=== PATIENT | male | born 1965 | race Caucasian/White ===

== ENCOUNTER 2022-10-13 14:55 | Emergency (ER) | payer MEDICARE, OTHER, SELFPAY ==
[2022-10-13 14:56] VITALS: BP 134/79; PULSE 66; RESP 18; TEMP 36.8; O2SAT 99; BMI 30.9
--- NOTE | 2022-10-13 15:02 | XR_ITS ---
FINAL REPORT CLINICAL HISTORY: Right shoulder pain, pt fell at daycare COMPARISON: None FINDINGS: RIGHT SHOULDER Two views demonstrate no acute fracture or dislocation. Mild AC joint degenerative change. The visualized bony structures are well aligned. No soft tissue abnormality is seen. IMPRESSION: No acute process. Reviewed, Interpreted and Dictated by Bala Xie III, MD Transcribed by Laurie Aguilar Authenticated and [facility]
--- NOTE | 2022-10-13 15:18 | PC.NURSE ---
XRAY AT [facility]
[2022-10-13 15:30] VITALS: BP 122/73; PULSE 68; O2SAT 99
--- NOTE | 2022-10-13 15:33 | ED_ITS ---
Discharge Plan Disposition Patient Disposition: Home, Self-Care Referrals Follow up/Referrals: Andrei Hicks [Primary Care Provider] - See instructions Activity Restrictions/Add. Instructions Additional Instructions/Restrictions: No evidence of fracture or dislocation you may take Tylenol or ibuprofen as needed for pain. Follow-up with orthopedic surgery in a few weeks if you are not showing signs of improvement to get an MRI to evaluate for possible rotator cuff injury. Clinical Impressions Clinical Impression: Sprain of right shoulder Discharge ED Provider: Nish Donnelly General Adult HPI General Chief complaint: Fall Stated complaint: AO fall 10/13, right shoulder pain Time Seen by Provider: 10/13/22 15:01 Mode of Arrival: Wheelchair Source of Information: Patient Limitations: No Limitations Description of Symptoms (Recalled from ER Triage Doc. by RN): Patient states he fell at daycare injuring his right shoulder. History of Present Illness HPI narrative: 56-year-old male from adult daycare presents with right shoulder injury after falling directly onto it. States that he has been able to move it since that time. Denies injuries elsewhere. No loss of movement or sensation in his hand or anywhere distal to the injury. Related Data Allergies Allergy/AdvReac Type Severity Reaction Status Date / Time No Known Allergies Allergy Verified 10/13/22 15:05 [facility] Disclaimer: The information contained in this section may have been updated after the patient was seen, as this information can be updated by other users. Social History (Updated 10/13/22 @ 16:32 by Fredrick Iraheta MD) Smoking Status: Never smoker alcohol intake: never current occupational status: other Travel in the last 8 weeks: None ROS Obtained: Yes All systems reviewed & no additional complaints except as documented Physical Exam General General appearance: alert Respiratory Respiratory exam: Present normal lung sounds bilaterally Cardiovascular Cardiovascular exam: Present regular rate; Absent tachycardia Extremities Exam Extremities exam: Present other (Right shoulder exam grossly normal to external appearance no soft tissue abnormalities ecchymosis there is no sulcus he does have tenderness he is holding his arm in a flexed and abducted position neurovascular intact) Neurological Exam Neurological exam: Present alert and oriented X3 Medical Decision Making Nate Inquiry Pt receiving controlled substance: No Vital Signs: 10/13/22 14:56 10/13/22 15:30 10/13/22 15:41 Temperature 98.2 F Temperature Source Oral Pulse Rate 68 74 Pulse Rate [Radial] 66 Respiratory Rate 18 Blood Pressure 122/73 142/88 H Blood Pressure [Right Arm] 134/79 Blood Pressure Mean 94 103 Blood Pressure Mean [Right Arm] 97 Blood Pressure Source Blood Pressure Source [Right Arm] Automatic Cuff Blood Pressure Position Blood Pressure Position [Right Arm] Sitting 02 Sat by Pulse Oximetry 99 99 97 Oxygen Delivery Method Room Air Room Air Room Air 10/13/22 16:43 Temperature 98.1 F Temperature Source Oral Pulse Rate 84 Pulse Rate [Radial] Respiratory Rate 18 Blood Pressure 142/78 H Blood Pressure [Right Arm] Blood Pressure Mean Blood Pressure Mean [Right Arm] Blood Pressure Source Automatic Cuff Blood Pressure Source [Right Arm] Blood Pressure Position Sitting Blood Pressure Position [Right Arm] 02 Sat by Pulse Oximetry Oxygen Delivery Method Room Air Orders (Tests/Meds): ED MEDICATIONS Discontinued Medications Generic Name Dose Route Start Last Admin Trade Name Freq PRN Reason Stop Dose Admin Morphine Sulfate 4 mg 10/13/22 15:28 10/13/22 15:41 Morphine 4mg/Ml Syringe IV 10/13/22 15:29 4 mg ONCE ONE Administration Ondansetron HCl 4 mg 10/13/22 15:35 10/13/22 15:41 Ondansetron 4mg/2ml Vial IV 10/13/22 15:36 4 mg ONCE ONE Administration ORDERS Category Date Time Status XR shoulder RT min 2V Stat Exams 10/13/22 15:02 Completed Medical Decision Narrative: 56-year-old male holding his arm in a flexed adducted position with shoulder pain. Grossly appears normal externally. AP view of the x-rays that were obtained I personally interpreted and feels normal. However on the Y view humeral head appears a little bit anteriorly displaced. May be positional given the patient would not cooperate fully with exams. We will give him some morphine and reassess. Trying to externally rotate and fully range his shoulder. Will await radiology read as well. May need to get a CT scan depending on the read. Update 3:59 PM patient fully ranging his arm while they were placing an IV. Awaiting radiology read still. I reassessed the patient physically and he now has full range of motion with internal and external rotation and abduction of his arm. Still no sulcus this is not clinically dislocated. He is much improved after some pain medicine. This is consistent with a musculoskeletal strain. X-rays read by radiology as normal. Discussed this with POGini and [id number] may get an outpatient MRI if he is not improving patient was discharged with supportive care. Critical Care Time Critical Care Time Critical Care Time: No Attestation: On 10/13/22, the high probability of a clinically significant, sudden or life threatening deterioration of the following system(s) required my full and direct attention, intervention and personal management. The time I documented below is in addition to time spent performing reported procedures but includes the following listed in this critical care notation.
[2022-10-13 15:41] VITALS: BP 142/88; PULSE 74; O2SAT 97
[2022-10-13] MEDS: MORPHINE 4MG/ML SYRINGE 4 MG IV (15:41)
[2022-10-13] MEDS: ONDANSETRON 4MG/2ML VIAL 4 MG IV (15:41)
[2022-10-13 16:43] VITALS: BP 142/78; PULSE 84; RESP 18; TEMP 36.7; O2SAT 97
== END 2022-10-13 16:44 | disposition home or self-care (01) ==
PROVIDERS: Emergency Provider Emergency Medicine; PCP Family Medicine
DX: S43.401A Unspecified sprain of right shoulder joint, initial encounter (principal); W19.XXXA Unspecified fall, initial encounter
CPT/HCPCS: 73030; 96374; 96375; 99284; J2405

== ENCOUNTER 2023-10-08 13:33 | Emergency (ER) | payer MEDICARE, OTHER, SELFPAY ==
[2023-10-08 13:35] VITALS: BP 142/86; PULSE 79; RESP 18; TEMP 36.7; O2SAT 98; BMI 33.8
--- NOTE | 2023-10-08 13:58 | PC.NURSE ---
pt ambulatory to restroom without complications
--- NOTE | 2023-10-08 14:03 | PC.NURSE ---
Dr. Donnelly at [facility] for pt eval
--- NOTE | 2023-10-08 14:05 | XR_ITS ---
FINAL REPORT CLINICAL HISTORY: fall, right knee pain COMPARISON: None FINDINGS: Three views of the right knee were obtained. There is no acute fracture or dislocation. There is moderate tricompartmental degenerative change, most pronounced at the patellofemoral joint. There is a bipartite patella. Osteopenia is noted. There is no acute soft tissue abnormality. IMPRESSION: No acute abnormality identified. Reviewed, Interpreted and Dictated by Cris Handy MD Transcribed by Laurie Agiular Authenticated and [facility]
--- NOTE | 2023-10-08 14:05 | XR_ITS ---
FINAL REPORT CLINICAL HISTORY: fall, right forearm pain COMPARISON: None FINDINGS: RIGHT ELBOW 3 views were obtained. There is no acute fracture or dislocation. There is no joint effusion. The joint spaces are intact. There is no soft tissue abnormality. IMPRESSION: No acute bony abnormality. Reviewed, Interpreted and Dictated by Cris Handy MD Transcribed by Laurie Aguilar Authenticated and [facility]
[2023-10-08 14:21] VITALS: PULSE 84; O2SAT 95
[2023-10-08 14:30] VITALS: PULSE 77; O2SAT 97
[2023-10-08] MEDS: IBUPROFEN 600 MG TABLET PO (14:39)
[2023-10-08] MEDS: ACETAMINOPHEN 500MG TAB 1000 MG PO (14:39)
--- NOTE | 2023-10-08 14:51 | ED_ITS ---
Discharge Plan Disposition Patient Disposition: Home, Self-Care Referrals Follow up/Referrals: Rob Sneed DO [Staff Physician] - See instructions Provider,Casi, [Primary Care Provider] - See instructions Activity Restrictions/Add. Instructions Additional Instructions/Restrictions: Call your family doctor to establish care for this visit to the emergency department and schedule follow-up within 48 hours to ensure improvement. If you have any worsening of your condition or any other concerning signs or symptoms, return to the emergency department or your primary care doctor for further evaluation. Follow-up with Dr. Sneed regarding this visit to the emergency department and your patella (kneecap) fracture. Take daily aspirin while wearing knee immobilizer until follow-up. Clinical Impressions Clinical Impression: Closed fracture of right patella, Elbow pain, right Print Language Print Language: Thai Discharge ED Provider: Nish Donnelly General Adult HPI General Chief complaint: Fall Stated complaint: AO right knee pain Time Seen by Provider: 10/08/23 13:38 Mode of Arrival: Ambulatory Source of Information: Patient Limitations: No Limitations Description of Symptoms (Recalled from ER Triage Doc. by RN): Patient states he was at adult day care tripped and fell over treadmill. patient reports he did not hit his head and denies LOC. States he hit right elbow and right knee co mplains of pain 5/10 History of Present Illness HPI narrative: Please note that above description of symptoms, in this electronic medical record under categorization of recalled from ER triage doctor by RN are reflective of an initial nursing assessment, however, is not reflective of my full history and physical exam that was personally taken and clarified. Consequentially, this preceding description of symptoms, which may include the patient's categorized chief complaint in the EMR, do not reflect my personal clinical impression, and the ultimate description of history of present illness and patient stated complaints should be deferred to this section of the note. Unless stated otherwise or congruent with this section of the note, additional signs, symptoms, or incongruence should be interpreted as inaccurate with my clinical impression. Related Data Allergies Allergy/AdvReac Type Severity Reaction Status Date / Time No Known Allergies Allergy Verified 10/13/22 15:05 [facility] Disclaimer: The information contained in this section may have been updated after the patient was seen, as this information can be updated by other users. Social History (Updated 10/13/22 @ 16:32 by Fredrick Iraheta MD) Smoking Status: Never smoker alcohol intake: never current occupational status: other Travel in the last 8 weeks: None ROS Obtained: Yes All systems reviewed & no additional complaints except as documented Physical Exam General General appearance: alert Head Head exam: atraumatic and normocephalic Eye Eye exam: Present normal appearance, PERRL and EOMI Neck Neck exam: Present normal inspection, full ROM and trachea midline Respiratory Respiratory exam: Absent respiratory distress, wheezes, stridor, accessory muscle use or prolonged expiratory phase Cardiovascular Cardiovascular exam: Present other (Pulses equal symmetric in upper and lower extremities) Abdominal Exam Abdominal exam: Present soft; Absent distention, tenderness or pulsatile mass Extremities Exam Extremities exam: Present tenderness (Overlying right patella and posterior right elbow); Absent full ROM or edema Neurological Exam Neurological exam: Present alert, oriented X3 and CN II-XII intact; Absent motor sensory deficit Skin Skin exam: Present warm and dry; Absent diaphoresis or erythema Medical Decision Making Medical Records Medical records reviewed: Yes I reviewed the patient's medical records. Nate Inquiry Pt receiving controlled substance: No Nate was queried for this patient: No Vital Signs: 10/08/23 13:35 10/08/23 14:21 10/08/23 14:30 Temperature 98.1 F Temperature Source Oral Pulse Rate 84 77 Pulse Rate [Right] 79 Respiratory Rate 18 Blood Pressure Blood Pressure [Right Arm] 142/86 H Blood Pressure Mean [Right Arm] 104 Blood Pressure Source Blood Pressure Source [Right Arm] Automatic Cuff 02 Sat by Pulse Oximetry 98 95 97 Oxygen Delivery Method Room Air Room Air Room Air 10/08/23 15:00 10/08/23 15:48 Temperature 98.2 F Temperature Source Pulse Rate 78 78 Pulse Rate [Right] Respiratory Rate 18 Blood Pressure 135/82 Blood Pressure [Right Arm] Blood Pressure Mean [Right Arm] Blood Pressure Source Automatic Cuff Blood Pressure Source [Right Arm] 02 Sat by Pulse Oximetry 98 Oxygen Delivery Method Room Air Room Air Orders (Tests/Meds): ED MEDICATIONS Discontinued Medications Generic Name Dose Route Start Last Admin Trade Name Freq PRN Reason Stop Dose Admin Acetaminophen 1,000 mg 10/08/23 14:05 10/08/23 14:39 Acetaminophen 500mg Tab PO 10/08/23 14:06 1,000 mg ONCE ONE Administration Ibuprofen 600 mg 10/08/23 14:05 07/25/24 14:39 Ibuprofen 600 Mg Tablet PO 10/08/23 14:06 600 mg ONCE ONE Administration ORDERS Category Date Time Status Elbow XR right minimum 3 views [XR elbow RT min 3V] Exams 10/08/23 14:05 Completed Stat Knee XR right 3 views [XR knee RT 3V] Stat Exams 10/08/23 14:05 Completed Medical Decision Narrative: 57-year-old male no relevant medical history presenting with elbow and knee pain after fall. Patient was walking at group facility when he tripped over exercise equipment. Patient states that he landed on his right knee and right elbow. Did not hit his head. No loss conscious. He has been able to tolerate bearing weight on his knee and using his right upper extremity, but they hurt. Moderate in intensity, do not radiate, no neurologic deficits. Patient denies hip, back, neck or pain elsewhere. Pain is primarily in the knee just over kneecap on the right side. Has not taken anything for pain. Also having pain at elbow/proximal forearm. History obtained with patient and staff. On arrival, patient very well-appearing. Patient does have tenderness about olecranon, but no outward injury or deformity or any other abnormality of the right upper extremity. Neurovascular intact with full range of motion. Patient right lower extremity with superficial abrasion overlying lateral/superior patella with swelling and bruising. Differential includes fracture, sprain, strain, among others. Patient given Tylenol and Motrin. X-rays to be obtained. On independent rotation of x-rays, patient does have patellar abnormality overlying the point of maximal tenderness consistent with fracture. Radiology read as bipartite patella, but I feel it is most consistent with fracture in this case with point of maximal tenderness. Patient to be given knee immobilizer and started on daily aspirin, this was relayed to patient and caregiver. In the emergency department. Outpatient referral to Dr. Sneed with orthopedics was given. Because patient at baseline without signs or symptoms of clinical decompensation, deemed appropriate for discharge. Results were relayed to patient who voiced understanding and were agreeable to outpatient management and follow up. I discussed my clinical impression with patient and answered all questions. At this time, the evidence for any other entities in the differential is insufficient to warrant any further testing or ED observation. This was explained as well. Advisory was given that persistent or worsening symptoms require further evaluation. I confirmed the understanding of this discussion. Rolloff Driver disclaimer Much of this encounter note is an electronic assistant signal maintainer spoken language to printed text. Electronic assistant signal maintainer of the spoken language may permit errors. Although I have reviewed the note, some errors may still exist. Critical Care Critical Care Time Critical Care Time: No
[2023-10-08 15:00] VITALS: PULSE 78; O2SAT 98
--- NOTE | 2023-10-08 15:00 | PC.NURSE ---
Dr. Donnelly at [facility] for update on POC
[2023-10-08 15:48] VITALS: BP 135/82; PULSE 78; RESP 18; TEMP 36.8; O2SAT 99
== END 2023-10-08 15:50 | disposition home or self-care (01) ==
PROVIDERS: Emergency Provider Emergency Medicine
DX: S82.001A Unspecified fracture of right patella, initial encounter for closed fracture (principal); M25.521 Pain in right elbow; W01.10XA Fall on same level from slipping, tripping and stumbling with subsequent striking against unspecified object, initial encounter
CPT/HCPCS: 73080; 73562; 99283

== ENCOUNTER 2025-02-14 11:38 | Outpatient (CLI) | payer MEDICARE, MEDICAID, SELFPAY ==
--- OUTSIDE RECORDS SUMMARY | 2025-02-14 11:43 | XMS_ITS | Clinical Summary ---
Author Organization Healthcare Address [address] [place] [address] Care Team Providers Care Marketing Representative Name Role Phone Andrei Hicks MD Primary Care Provider [phone] Family History Medical History Relation Name Comments Diabetes Father Diabetes Mother Relation Name Status Comments Father Mother Social History Tobacco Use Types Packs/Day Years Used Date Smoking Tobacco: Never Alcohol Use Standard Drinks/Week Comments Yes 0 (1 standard drink = 0.6 oz pur e alcohol) Alcoholic Drinks/day: Alcohol Sex and Gender Information Value Date Recorded Sex Assigned at Not on file Legal Sex Male 8:15 PM EDT Gender Identity Not on file Sexual Orientation Not on file Last Filed Vital Signs Vital Sign Reading Time Taken Comments Blood Pressure - - Pulse 64 05/05/2017 2:28 PM EST Temperature - - Respiratory Rate 16 05/05/2017 2:28 PM EST Oxygen Saturation - - Inhaled Oxygen Concentration - - Weight 90.4 kg (199 lb 5.1 oz) 05/05/2017 2:28 P M EST Height 157.5 cm (5' 2 ) 05/05/2017 2:28 PM EST Body Mass Index 36.46 05/05/2017 2:28 PM EST Plan of Treatment Not on file Care Teams Marketing Representative Relationship Specialty Start Date End Date Andrei Hicks MD [address] [place] [id number] PCP - General 07/27/20
[2025-02-14 11:50] LABS: Microscopic,Cath URINE MICROSCOPIC (MICROSCOPIC)
[2025-02-14 12:01] LABS: Appearance,Urine/Cath CLEAR (Clear); Bilirubin,Cath Negative (Negative); Blood, Urine/Cath 1+ (Negative); Color,Urine/Cath YELLOW (Yellow); Glucose,Urine/Cath (UA) Negative (Negative); Ketones,Urine/Cath Negative (Negative); Leukocyte Esterase,Cath 1+ (Negative); Nitrate,Cath Negative (Negative); PH,Urine/Cath 7.0 (5.0-8.5); Protein,Urine/Cath Negative (Negative); Specific Gravity, Urine/Cath <= 1.005 (1.005-1.030); Urobilinogen,Cath 0.2 EU/dl (0.2)
[2025-02-14 12:19] LABS: RBC,Urine/Cath Occasional # /hpf (0-3); WBC,Urine/Cath Occasional #/hpf (0-3)
== END 2025-02-14 23:59 | disposition home or self-care (01) ==
LOC: LAB.DROPOF 11:41
PROVIDERS: PCP Family Medicine; Visit Provider Nurse Practitioner Family
DX: N39.0 Urinary tract infection, site not specified (principal)
CPT/HCPCS: 81001; 87086

== ENCOUNTER 2025-03-01 16:54 | Outpatient (CLI) | payer MEDICARE, MEDICAID, SELFPAY ==
--- OUTSIDE RECORDS SUMMARY | 2025-03-01 17:22 | XMS_ITS | Clinical Summary ---
Author Organization 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 MULTIVITAMIN ORAL Take by mouth. Active acetaminophen (TYLENOL ARTHRITIS PAIN) 650 mg Oral Tablet Sustained ReleaseIndications :Primary osteoarthritis of both knees,Primary osteoarthritis of both shoulders,DDD (degenerative disc disease), lumbosacral,DDD (degenerative disc disease), thoracic,DDD (degenerative disc disease), cervical,Dextrosco liosis of thoracic spine Take 2 Tablets by mouth daily as needed (arthritis pain). 4 Active clotrimazole (LOTRIMIN) 1 % Top CreamIndications:T inea corporis Apply topically 2 times daily. 60 g 1 4 Active divalproex (DEPAKOTE) 250 mg Oral Tablet, Delayed Release (E.C.)Indications: Major neurocognitive disorder (HCC) Take 1 Tablet by mouth 2 times daily. 60 Tablet 12 4 Active loratadine (CLARITIN) 10 mg Oral TabletIndications: Chronic seasonal allergic rhinitis Take 1 Tablet by mouth daily. As needed for allergies 90 Tablet 3 4 Active Active Problems Patient Care Coordination No te Formatting of this note migh t be different from the original. BARBARA 04/20/14 UDS 11/18/12 CSTA 09/12/11 EMILY-12/16/11 SOAPP-12/16/11 Problem Noted Date Diagnosed Date Closed nondisplaced fracture of right patella with routine healing 10/12/2023 Assessment & Plan (10/12/2023 11:30 AM EDT): Ok to remain out of brace immobilizer Limit activity To see Dr Sneed for opinion soon Skin ulcer of right calf, limited to breakdown o f skin 10/12/2023 Assessment & Plan (10/12/2023 11:29 AM EDT): Ok to leave brace immobilizer off PSA, bandaid, change daily Recheck if not healing well DDD (degenerative disc disease), thoracic 2023 DDD (degenerative disc disease), cervical 2023 Dextroscoliosis of thoracic spine 09/08/2023 Overview (09/08/2023): On xrays 2022 Centered around T7 Major neurocognitive disorder 09/08/2023 Assessment & Plan (09/08/2023 9:14 AM EDT): Has a lot of delusional thinking Will try low dose depakote His sister/POA will let me know if any problems on this Mentally disabled 12/01/2022 Overview (09/08/2023): Working on waiver Goes to day program twice weekly Primary osteoarthritis of both shoulders 023 Borderline intellectual disability 05/22/2022 Tinea corporis 12/06/2019 Diverticulosis of colon 12/06/2019 Primary osteoarthritis of both knees 05/06/2017 Bulging lumbar disc 11/01/2013 DDD (degenerative disc disease), lumbosacral Chronic seasonal allergic rhinitis 06/15/2012 Assessment & Plan (10/12/2023 11:30 AM EDT): Ok for claritin prn Hypogonadism male NEREIDA (generalized anxiety disorder) Assessment & Plan (09/08/2023 8:57 AM EDT): Off meds stable IBS (irritable bowel syndrome) Resolved Problems Problem Noted Date Diagnosed Date Resolved Date History of diverticulosis 05/22/2022 Acute hip pain, left 03/29/2021 024 Acute pain of right shoulder 03/29/2021 09/08/2023 Multiple falls 03/29/2021 09/08/2023 Abdominal pain, LLQ (left lower quadrant) 12/06/2019 09/08/2023 Change in bowel habits 12/06/201909/07 Colitis 12/06/2019 09/08/2023 Lumbar sprain 10/27/2019 09/08/2023 Bilateral radicular pain 11/01/2013 Acute midline low back pain without sciatica 4 09/08/2023 Benign prostatic hyperplasia with urinary obstruction 07/26/2013 09/08/2023 Prostatitis chronic 12/27/2012 09/08/19 24 Chronic constipation 06/15/2012 024 Assessment & Plan (09/08/2023 8:58 AM EDT): Off meds stable 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 06/15/2012 09/08/2023 GERD (gastroesophageal reflux disease) 09/08/2023 Osteoarthritis 05/06/2017 Seasonal allergies 4 Chronic sacroiliac joint pain 09/08/2023 Immunizations Immunization Administration Dates Next Due DTP 11/06/1972, 2,10/23/1971,1967 Hepatitis B (Recombinant), Adjuvanted 09/08/2023 Influenza Vaccine Quadrivalent 8,01/03/2016,02/06/2015,2013 Influenza Vaccine Quadrivalent PF 11/29/2012 Influenza Vaccine, Unspecifi ed Formulation 12/02/2011,01/03/2011,12/31/2009,2007 Influenza Virus Vaccine Quad rivalant, Flublok 02/04/2022,11/29/2019,03/07/2019 Measles/Rubella 01/24/1972 Moderna SARS-CoV-2 Booster V accine 18+ Yrs (Light Blue Border) 03/29/2021 Moderna SARS-CoV-2 Vaccine 1 2+ Yrs (Light blue border) 10/07/2020,09/07/2020 Pfizer SARS-CoV-2 Bivalent B ooster Vaccine 12+ Years (Pringle border) 02/04/2022 Pneumococcal Conjugate Vacci ne 13 Valent 02/06/2015 Polio, Unspecified Formulation 3,12/09/1971,10/23/1971,1967 Zoster Recombinant 09/14/2017,07/13/2017 Surgical History Surgery Date Site/Laterality Comments PITUITARY SURGERY 10/25/99 TUMOR REMOVED Family History Medical History Relation Name Comments Diabetes Father Diabetes Mother Relation Name Status Comments Father Mother Social History Tobacco Use Types Packs/Day Years Used Date Smoking Tobacco: Never Smokeless Tobacco: Never Tobacco Cessation:Counseling Given: Not Answered Alcohol Use Standard Drinks/Week Comments No 0 (1 standard drink = 0.6 oz pur e alcohol) Overall Financial Resource Strain ([facility]) Answe r Date Recorded How hard is it for you to pa y for the very basics like food, housing, medical care, and heating? Not very hard 03/25/2022 PHQ-2 Answer Date Recorded PHQ-2 Total Score 0 06/25/2022 [facility] [facility] - Occupational Stress Questionnaire Answer Date Recorded Do you feel stress - tense, restless, nervous, or anxious, or unable to sleep at night because your mind is troubled all the time - these days? Rather much 03/25/2022 Exercise Vital Sign Answer Date Recorde d On average, how many days pe r week do you engage in moderate to strenuous exercise (like a brisk walk)? 7 days 03/25/2022 On average, how many minutes do you engage in exercise at this level? 20 min 03/25/2022 Hunger Vital Sign Answer Date Recorded Within the past 12 months, y ou worried that your food would run out before you got the money to buy more. Never true 03/25/19 23 Within the past 12 months, t he food you bought just didn't last and you didn't have money to get more. Never true 03/25/2022 PRAPARE - Transportation Answer Date Re corded In the past 12 months, has l ack of transportation kept you from medical appointments or from getting medications? Yes 01/1 In the past 12 months, has l ack of transportation kept you from meetings, work, or from getting things needed for daily living? No 03/25/2022 Sexually Active Control Partners Comments Not Currently Female Sex and Gender Information Value Date Recorded Sex Assigned at Not on file Legal Sex Male 10:42 PM EDT Gender Identity Not on file Sexual Orientation Not on file Last Filed Vital Signs Vital Sign Reading Time Taken Comments Blood Pressure 120/72 10/12/2023 11:00 AM EDT Pulse 73 10/12/2023 11:00 AM EDT Temperature 36.1 C (97 F) 10/12/2023 11:00 AM EDT Respiratory Rate 24 07/16/2020 12:37 PM EDT Oxygen Saturation 94% 10/12/2023 11:00 AM EDT Inhaled Oxygen Concentration - - Weight 83.9 kg (185 lb) 10/12/2023 11:00 AM EDT Height 160 cm (5' 3 ) 10/12/2023 11:00 AM EDT Body Mass Index 32.77 10/12/2023 11:00 AM EDT Plan of Treatment Health Maintenance Due Date Last Done Comments DTaP/TDaP/Td (5 - Tdap) 12/31/1975 11/06/18 72, 12/09/1971, 10/23/1971, Additional history exists Cologuard 2009 FIT 2009 Sigmoidoscopy 2009 Virtual Colonography 2009 Pneumococcal Vaccine 50+ (2 of 2 - PCV20 or PCV21) 02/07/2016 02/06/2015 Hepatitis B Vaccine (2 of 2 - CpG 2-dose series) 10/06/2023 09/08/2023 Wellness Exam Medicare 09/08/2024 09/08/2023, 2019 COVID-19 Vaccine ( season) 2024 02/04/2022, 03/29/2021, 10/07/2020, Additional history exists Influenza Vaccine (#1) 2024 2, 11/29/2019, 03/07/2019, Additional history exists Colon Cancer Screening 12/18/2025 Colonoscopy 12/18/2025 12/19/2015, 12/19/2015 Hepatitis C Screening Completed 07/13/2017 Zoster Completed 09/14/2017, 07/13/2017 Meningococcal B Vaccine Aged Out No l onger eligible based on patient's age to complete this topic Goals Goal Patient Goal Type Associated Problems Recent Progress Patient-Stated? Author Maintain a healthy diet, exercise regularly and maintain an ideal body weight General No Neela Anne, ROD Procedures Procedure Name Priority Date/Time Associated Diagnosis Comments HCV ANTIBODY SCREEN W/ REFLEX Routine 07/13/2017 9:51 AM EDT Need for hepatitis C screening test [facility] COLONOSCOPY Routine 12/19/2015 1:40 PM EDT from Last 3 Months or Most Recently Relevant to Health Maintenance Results * HEPATITIS C ANTIBODY - SCREENING (07/13/2017 9:51 AM EDT) Hep C Ab Negative Negative 07/13/2017 3:43 PM EDT [facility] Blood VENOUS BLOOD / Unknown Venipuncture / Unknown 07/13/2017 9:51 AM EDT 07/13/2017 9:51 AM EDT us Andrei Hicks MD HEMATOLOGY ORDERABLES Final R esult [facility] [address] [place], [place] [id number] * [facility] COLONOSCOPY (12/19/2015 1:40 PM EDT) 12/19/2015 1:40 PM EDT Narrative [facility] - 12/19/2015 1:40 PM EDT [facility] [address] [place] [address] Colonoscopy Report Date: 12/19/2015 1:40 PM Patient Name: SHAHEEN ALANIZ .0 Endoscopist(s): Emanuel Feliciano MD Gender: Male (age): 1965 (49) Instrument(s): C-8([id number]) Referring Physician: Andrei Hicks MD [address] [place] [address] (phone) (fax) Anesthesia Provider: Leobardo Hernandez CRNA - [facility] (Nurse auto service mechanic) Nurse(s): Alaina Cordova, RN, BSN (Pre-Procedure) Nupur Macario, RN, BSN (Intra-Procedure) Rosetta Cancino RN, BSN (Post-Procedure) ASA Class: P2 - 12/19/2015 12:36 PM Leobardo Hernandez History of Present Illness: SHAHEEN has been assessed and approved for moderate sedation. The History and Physical was reviewed and no changes were noted regarding medications, allergies or medical history. Administered Medications: lidocaine (PF) 40 mg IV propofol 150 mg IV Indications: Change in Bowel Habits: 787.99 - R19.4 Vital Signs: Weight (lbs/oz) Height (ft/in) BMI 196 / 5 / 3 34.72 BP (mmHg) Pulse (ppm) Rhythm Resp/min Temp SPO2 (%) 142/86 66 Regular 20 98.1 (F) 96 Physical Exam: Physical exam was performed on 12/19/2015 at 12:45 PM. Constitutional: Appearance: well nourished,well-developed, well groomed, in no acute distress.. ENMT: Lips/teeth/gums: normal oral mucosa, lips and gums; good dentition. Oropharynx: tongue mid line, normal movement, mucous membranes pink and moist, no oral lesions or exudate. Neck: Neck: normal ROM. Respiratory: Effort: non labored, normal effort. Auscultation: clear to ausculatation bilaterally; no wheezes, rhonchi or rales. Cardiovascular: Auscultation: normal rate and rhythm; normal S1 and S2; no murmurs, rubs or gallops. Gastrointestinal/Abdomen: Abdomen: flat, soft, nontender, nondistended, no hepatosplenomegaly, no guarding, no rebound, no masses, normal bowel sounds. Liver/Spleen: no hepatosplenomegaly. Psychiatric: Orientation: oriented to time, space and person. Mood and affect: no evidence of depression, anxiety or agitation. Procedure: The procedure, indications, preparation and potential complications were explained to the patient, who indicated understanding and signed the corresponding consent forms. This is a/an Screening colonoscopy... MAC with IV sedation was administered by a nurse auto service mechanic / anesthesiologist. Continuous pulse oximetry, cardiac monitoring blood pressure and CO2 monitoring were performed. Supplemental oxygen was used. The quality of preparation was Adequate. Patient was placed in left lateral decubitus position. The colonoscope was introduced through the rectum and advanced under direct visualization until cecum, appendiceal orifice, ileo-cecal valve and terminal ileum was reached The appendiceal orifice and the ileo-cecal valve were identified.. The colonoscope was retroflexed within the rectum. Careful visualization was performed as the instrument was withdrawn. Patient tolerance to procedure was good. The procedure was not difficult. Digital rectal exam was normal Limitations/Complications: There were no apparent limitations or complications Findings: Excavated lesions A few diverticula were seen. Protruding lesions Grade 2 internal hemorrhoids were noted. Impressions: Diverticulosis of the colon. Grade 2 internal hemorrhoids. Plan: Follow-up with Dr. Feliciano in 3 months. Colonoscopy in 10 years, or sooner if clinically indicated. Continue home medications Maintain a high fiber diet Diverticulosis and Diverticulitis Education Emanuel Feliciano MD Electronically signed on 12/19/2015 2:38:49 PM by Emanuel Feliciano MD Emanuel Feliciano MD GI PROCEDURE ORDERABLES Final Result Performing Organization Address City/State/[facility] Co md Phone Number [facility] [address] [place], [place] [address] [phone] from Last 3 Months or Most Recently Relevant to Health Maintenance Insurance MEDICARE [place] PART A AND B Member Subscriber Plan / Payer (Ef fective 2003-Present) Name:Shaheen Alaniz Member ID:[id number] Relation to Subscriber:Self Name:Shaheen Alaniz Subscriber ID:[id number] Payer ID:Not on file Group ID:Not on file Type:Not on file Address: [address] [address] [facility] [place] [facility] [address] [facility] [facility] [place] [address] * Guarantor: Shaheen Alaniz Account Type Relation to Patient Date of Phone Billing Address [place] Personal Family Self Advance Directives For more information, please contact: [phone] Documents on File Type Date Recorded Patient 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
--- OUTSIDE RECORDS SUMMARY | 2025-03-01 17:22 | XMS_ITS | Clinical Summary ---
Author Organization Healthcare Address [address] [place] [address] Care Team Providers Care Trekking Guide Name Role Phone Andrei Hicks MD Primary Care Provider [phone] Family History Medical History Relation Name Comments [...] of Treatment Not on file Care Teams Trekking Guide Relationship Specialty Start Date End Date Andrei Hicks MD [address] [place] [address] PCP - General 07/27/20
--- OUTSIDE RECORDS SUMMARY | 2025-03-01 17:22 | XMS_ITS | Data Portability ---
Author Organization [facility] SUSANNA Kidd [facility] Address [address] [place] [address] Care Team Providers Care Behavioral Intervention Specialist Name Role Phone [facility] Care Provider Assessment No assessment recorded. Plan of Treatment Reminders Order Date Submit Date Provider Last Modified By Organization Details Last Modified Time Details Appointments None record ed. Lab None record ed. Referral None record ed. Procedures None record ed. Surgeries None record ed. Imaging None record ed. Medication Orders None record ed. Patient TargetsNo targets recorded. Patient Instructions Encounter Date Encounter Id Patient Instructions Last Modified By Organization Details Last Modified Time 03/10/2023 [id number] 1. Audiogram performed today - results reviewed. 2. Advised hearing aids might be beneficial to the patient - HAE to be scheduled. 3. Bilateral cerumenectomy via headlight guidance - Full risks, complications, and benefits of operative versus non-operative intervention have been thoroughly discussed. Understanding was expressed, informed consent given, and we will proceed with the discussed in office treatment plan. There were no questions for me at the end of the office visit. 4. Follow up visit in 6 months or sooner if concerns arise. [email or web address] Not available 03/10/2023 12:25:38 Reason for Referral None Reported. Results Created Date Observation Date Name Description Value Unit Range Abnormal Flag Note LastModifiedBy Organization Detail LastModifiedTime 03/12/20 23 03/10/2023 audio gram No observ ation record ed. BARCODE Not Available 2022 14:39:25 Result Notes None recorded. Procedures Surgical History Date Name Laterality Status Provider Name and Address Organization Details Recorded Time Tympanogram completed ECHO ONEIL , AUD, [facility] [address] [place], [address], [facility] 03/10/2023 11:37:28 3 Audiogram completed ECHO GOMEZCHARLES , AUD, [facility] [address] [place], [address], [facility] 03/10/2023 11:37:27 3 Cerumen removal - Instruments, Bilateral completed Nikole Jose De Jesus [facility] 03/10/2023 12:20:26 Imaging Results None recorded. Procedure Notes None recorded. Medical Equipment None Reported. Vitals Date Recorded Body height Body mass index (BMI) Body weight Body temperature Heart rate Systolic And Diastolic Provider Name and Address Organization Details Last Updated DateTime 3 160.02 cm 32.6 kg/m2 99374 g 98.1 [degF] 60 /min 123/75 mm[Hg] Ericka Aguilar [facility] 3 12:01:59 Social History None recorded. Functional Status Question Answer Note LastModified by Organization D etails LastModified Time What is your level of alcohol consumption? None Information not available 03/10/2023 Mental Status None recorded. Family History Relationship Description Onset Age of this Age Resolved Age Notes LastModified by Organization Details LastModified Time Brother Hearing loss Not avail able 03/10/2023 12:07:21 Brother Heart disease Not available 2022 12:07:35 Brother Hypertensive disorder Not available 2022 12:08:00 Brother Diabetes mellitus Not available 2022 12:08:28 Mother Hearing loss Not availa ble 03/10/2023 12:07:21 Mother Diabetes mellitus Not available 2022 12:08:28 Father Hearing loss Not availa ble 03/10/2023 12:07:21 Father Diabetes mellitus Not available 2022 12:08:28 Father Kidney disease Not available 2022 12:08:45 Medical History No medical history recorded. Past Encounters Encounter ID Performer Location Encounter Start Date Encounter Closed Date Diagnosis/Indication Diagnosis SNOMED-CT Code Diagnosis ICD10 Code Diagnosis IMO Codes Diagnosis Note [id number] [facility], AUD, [facility] [address] [place] [address] 03/10/2023 11:09:29 03/11/2023 04:59:01 Tinnitus of right ear 7042974770 108 H93.11 Ear pressu re sensation 851299270 H93.8X3 Impairment of balance 38 2380133 R26.89 Sensorineu ral hearing loss of bilateral ears 452829277 H90.3 [id number] MD FLORENCIO R[facility]LE [facility] [address] [place] [address] 03/10/2023 11:09:29 03/12/2023 15:59:21 Sensorineural hearing loss of bilateral ears 255897664 H90.3 Impacted c erumen of bilateral ears 9221776239 585654 H61.23 Health Concerns Section Related Observation LastModified by Organization Detai ls LastModified Time None Recorded Concern Status LastModified by Organization Details LastModified Time None Recorded Advance Directives Directive None Recorded Payers Insurance Date Sequence Insurance Name Policy Number Policy Ramírez Covered Member ID Ramírez Member ID Guarantor Name 04/28/2023 1 [place] Shaheen Moreno [id number] Shaheen Moreno 04/28/2023 2 [facility] (MEDICAID HMO) Shaheen Younge [id number] Shaheen Moreno 03/10/2023 1 [place] [employer] [facility] Shaheen Younge [id number] Shaheen Younge Notes Date Note Type Note Provider Name and Address Organization Details Recorded Time 03/10/2023 text/html Shaheen is a 57 year old male who comes in today for consultation at the request of [facility]. for an evaluation of hearing loss. Shaheen reports that his hearing loss has been going on for years. His sister in law reports that he has had hearing loss for years and he has talked loud as long as she can remember. There is a family history of hearing loss with his parents but they did not use hearing aids. Shaheen also complains of pain behind his left ear. He does have a burning sensation. He did have a CT scan of the neck and was told he had arthritis in his neck. MONICA SEAMAN MD [facility] [place], [address], [facility] 03/10/2023 18:54:27
[2025-03-01 17:43] LABS: Microscopic, Urine URINE MICROSCOPIC (MICROSCOPIC)
[2025-03-01 18:38] LABS: Bilirubin,Urine Negative (Negative); Color,Urine YELLOW (Yellow); Glucose,Urine (UA) Negative (Negative); Ketones,Urine TRACE (Negative); Leukocyte Esterase,Urine Negative (Negative); PH,Urine 6.0 (5.0-8.5); Protein,Urine TRACE (Negative); Specific Gravity, Urine 1.025 (1.005-1.030); Urobilinogen,Urine 0.2 EU/dl (0.2)
[2025-03-01 19:08] LABS: Bacteria,Urine 1+ /lpf; Mucus,Urine 1+ /lpf; Squamous Epithelial Cell,Urine Occasional #/hpf (0-5); WBC,Urine 20-50 #/hpf (0-3)
== END 2025-03-01 23:59 | disposition home or self-care (01) ==
LOC: LAB.DROPOF 16:59
PROVIDERS: PCP Family Medicine; Visit Provider Nurse Practitioner Family
DX: N39.0 Urinary tract infection, site not specified (principal)
CPT/HCPCS: 81001; 87086